=== PATIENT | female | born 1975 | race Caucasian/White ===

== ENCOUNTER 2023-02-20 19:21 | Emergency (ER) | payer SELFPAY ==
[2023-02-20] VITALS (16 sets, daily range): BP systolic 110–174; BP diastolic 57–108; PULSE 97–114; RESP 22; TEMP 36.6–37.2; O2SAT 95–99; BMI 27.8
[2023-02-20] MEDS: ONDANSETRON 4 MG/2 ML INJ IV (20:06)
[2023-02-20 20:20] LABS: Add Manual Diff / Slide Review NO; Basophils Absolute Auto 100 /uL (0-100); Basophils Percent Auto 0.7 % (0-2); Eosinophils Absolute Auto 200 /uL (0-450); Eosinophils Percent Auto 1.3 % (2-4); Hematocrit 44.7 % (36-46); Hemoglobin 15.1 g/dL (12.0-16.0); Lymphocytes Absolute Auto 2300 /uL (1100-4500); Lymphocytes Percent Auto 17.9 % (25-40); Mean Corpuscular HGB Conc 33.8 % (30-36); Mean Corpuscular Hemoglobin 29.2 PG (26-34); Mean Corpuscular Volume 86.2 fL (80-100); Monocytes Absolute Auto 700 /uL (0-900); Monocytes Percent Auto 5.2 % (3-14); Neutrophils Absolute Auto 9500 /uL (1500-7000); Neutrophils Percent Auto 74.9 % (50-75); Platelet Count 404 X10^3/uL (150-400); Red Blood Cell Count 5.19 X10^6/uL (4.0-5.2); White Blood Cell Count 12.7 X10^3/uL (4.5-11.0)
[2023-02-20 20:24] LABS: Bacteria Urine Few (2-10); RBC Urine 0-1/HPF (0-5/HPF); Squamous Epithelial Cell Urine 1-5 /HPF (0-5/HPF); WBC Urine 1-5/HPF (0-5/HPF)
[2023-02-20 20:25] LABS: Amorphous Sediment Urine 4+; Culture Indicated Urine Specimen Cultured
[2023-02-20 20:28] LABS: Alanine Aminotransferase 29 IU/L (<35); Albumin 4.9 g/dL (3.5-5.0); Albumin Globulin Ratio 1.3 (1.0-2.8); Alkaline Phosphatase 143 U/L (38-126); Aspartate Aminotransferase 27 IU/L (14-36); BUN Creatinine Ratio 22.6 (6-22); Bilirubin Total 0.6 mg/dL (0.2-1.3); Blood Urea Nitrogen 19 mg/dL (7-17); Calcium 10.1 mg/dL (8.4-10.2); Carbon Dioxide 23 mmol/L (22-32); Chloride 103 mmol/L (98-107); Estimated Glomerular Filt Rate > 60 mL/min (>60); Globulin 3.7 g/dL (1.7-4.1); Glucose 110 mg/dL (70-100); HEMOLYSIS < 15 (0-50); Lipase 64 U/L (23-300); Potassium 3.9 mmol/L (3.4-5.1); Sodium 139 mmol/L (137-145); Total Protein 8.6 g/dL (6.3-8.2)
[2023-02-20] MEDS: SODIUM CHLORIDE 0.9% 1,000 ML 1000 ML IV ×2 (20:53→23:27)
--- NOTE | 2023-02-20 22:11 | ED.ABDPAIN ---
HPI - Abdominal Pain General Chief Complaint: Abdominal Pain Stated Complaint: NVD, ABD pain Time Seen by Provider: 02/20/23 21:06 Source: patient Mode of arrival: Wheelchair Limitations: no limitations History of Present Illness HPI narrative: 47-year-old female with no reported medical issues. Patient states she was doing fine until a couple hours ago started having abdominal pain particularly in the right lower quadrant and then had nausea and vomiting. States the pain has pretty much resolved but has been intermittently nauseated and continued vomiting. No fevers, denies sweats. Denies chest pain or shortness of breath. She states most of her discomfort is more epigastric currently. No back or flank pain. She states she did not have any flank pain with the pain initially started. She states she normally has bowel movements almost every time she goes to urinate and she has not had a bowel movement today. She is not sure if she is passing any gas but states she would a bowel movement yesterday. She denies dysuria urgency or frequency, urine maybe been a little bit darker. No vaginal bleeding or discharge. She states she is not had similar issues in the past. She states her family has been well, she did not have much to eat she had a peanut butter and jelly sandwich but states her family also had this no one got ill. She is had cholecystectomy and total hysterectomy. She does still have her appendix. She is never had kidney stones. States allergic to sulfa. Denies tobacco, alcohol or illicit. Related Data Previous Rx's Medication Instructions Recorded cephalexin 500 mg capsule 500 mg PO BID 7 days #14 caps 02/21/23 Allergies Allergy/AdvReac Type Severity Reaction Status Date / Time sulfasalazine AdvReac Abdominal Verified 02/20/23 20:05 Pain Review of Systems Review of Systems ROS Unobtainable: All systems reviewed & are unremarkable except as noted in HPI and below Patient History Social History Smoking Status: Never smoker Smoking Status: Never smoker Substance Use Type: does not use Exam Narrative Exam Narrative: GENERAL: Alert and oriented x three, obese female in mild distress. HEENT: Head normocephalic, atraumatic, EOMI, pupils reactive, face symmetric, moist mucous membranes NECK: Supple, full range of motion CARDIOVASCULAR: Regular rate and rhythm without murmurs, rubs or gallops. RESPIRATORY: Breath sounds equal bilaterally, no wheezes rales or rhonchi. ABDOMEN: Soft, nontender. Nondistended. Normoactive bowel sounds all 4 quadrants. No guarding or rebound, rigidity, no mass. After palpation patient's abdomen she started having emesis, was watery with slight yellowish tint. No blood, no bile. Fecal material. : No CVA tenderness bilaterally. EXTREMITIES: Normal range of motion, no clubbing or edema. Neurovascularly intact NEUROLOGICAL: Cranial nerves II through XII grossly intact. Moving all extremities SKIN: Warm, dry, no petechiae, no rashes or lesions. Initial Vital Signs Initial Vital Signs: Vital Signs Temperature 98 F 02/20/23 19:30 Pulse Rate 106 H 02/20/23 19:30 Respiratory Rate 22 02/20/23 19:30 Blood Pressure 174/108 H 02/20/23 19:30 Pulse Oximetry 96 02/20/23 19:30 Oxygen Delivery Method Room Air 02/20/23 19:30 Course Orders Ordered: ED Orders 02/20/23 20:01 Urine Culture Stat Urine Microscopic Stat 02/20/23 20:08 Complete Blood Count AUTO DIFF Stat Comprehensive Metabolic Panel Stat Lactate (Lactic Acid) Stat Lipase Stat Procalcitonin Stat 02/20/23 23:05 CT abdomen pelvis w con Stat 02/20/23 23:34 Blood Culture Stat 02/20/23 23:42 Covid-19 + FLU A/B + RSV - PCR Stat Discontinued Medications Sodium Chloride (Normal Saline 0.9%) 1,000 mls @ 1,000 mls/hr IV BOLUS ONE Stop: 02/20/23 21:45 Last Infusion: 02/20/23 22:11 Dose: Infused Documented By: Admin: 02/20/23 20:53 Dose: 1,000 mls/hr Documented By: RANDY Sodium Chloride (Normal Saline 0.9%) 1,000 mls @ 1,000 mls/hr IV BOLUS ONE Stop: 02/21/23 00:04 Last Infusion: 02/21/23 00:23 Dose: Infused Documented By: Admin: 02/20/23 23:27 Dose: 1,000 mls/hr Documented By: RANDY Ceftriaxone Sodium 2,000 mg/ (Sodium Chloride) 100 mls @ 200 mls/hr IV NOW ONE Stop: 02/20/23 23:46 Last Infusion: 02/21/23 00:58 Dose: Infused Documented By: Admin: 02/21/23 00:19 Dose: 200 mls/hr Documented By: AMANDA Metoclopramide HCl (Metoclopramide 10 Mg/2 Ml Inj) 10 mg IV NOW ONE Stop: 02/20/23 23:05 Last Admin: 02/20/23 23:27 Dose: 10 mg Documented By: RANDY Ondansetron HCl (Ondansetron 4 Mg Odt) 4 mg PO NOW PRN PRN Reason: Nausea And Vomiting Ondansetron HCl (Ondansetron 4 Mg/2 Ml Inj) 4 mg IV NOW PRN PRN Reason: Nausea And Vomiting Last Admin: 02/20/23 20:06 Dose: 4 mg Documented By: RANDY Vital Signs Vital signs: Vital Signs - 8 hr 02/20/23 20:08 02/20/23 20:08 02/20/23 20:30 Temperature Pulse Rate 100 H 97 H Blood Pressure 125/80 Pulse Oximetry 98 97 Oxygen Delivery Method Room Air 02/20/23 20:31 02/20/23 20:31 02/20/23 20:54 Temperature 99.0 F Pulse Rate 98 H Blood Pressure 120/63 Pulse Oximetry 96 Oxygen Delivery Method Room Air 02/20/23 21:00 02/20/23 21:01 02/20/23 21:01 Temperature Pulse Rate 102 H 99 H Blood Pressure 132/68 Pulse Oximetry 98 98 Oxygen Delivery Method Room Air 02/20/23 21:30 02/20/23 21:31 02/20/23 21:31 Temperature Pulse Rate 103 H 102 H Blood Pressure 125/59 L Pulse Oximetry 98 98 Oxygen Delivery Method Room Air 02/20/23 22:00 02/20/23 22:01 02/20/23 22:01 Temperature Pulse Rate 100 H 104 H Blood Pressure 132/62 Pulse Oximetry 96 99 Oxygen Delivery Method 02/20/23 22:30 02/20/23 22:31 02/20/23 22:31 Temperature Pulse Rate 105 H 106 H Blood Pressure 113/57 L Pulse Oximetry 96 95 Oxygen Delivery Method 02/20/23 22:43 02/20/23 22:43 02/20/23 23:00 Temperature Pulse Rate 107 H 114 H Blood Pressure 110/63 Pulse Oximetry 96 95 Oxygen Delivery Method Room Air Room Air 02/20/23 23:00 02/20/23 23:37 02/20/23 23:37 Temperature Pulse Rate 101 H Blood Pressure 121/72 113/77 Pulse Oximetry 99 Oxygen Delivery Method 02/21/23 00:00 02/21/23 00:00 02/21/23 00:30 Temperature Pulse Rate 106 H 105 H Blood Pressure 106/57 L Pulse Oximetry 96 95 Oxygen Delivery Method Room Air Room Air 02/21/23 00:57 02/21/23 00:57 Temperature Pulse Rate 100 H Blood Pressure 109/62 Pulse Oximetry 97 Oxygen Delivery Method Room Air MDM - Abdominal Pain Lab Data 02/20/23 20:08 02/20/23 20:08 Labs: Lab Results 02/20/23 02/20/23 02/20/23 Range/Units 20:01 20:08 23:42 WBC 12.7 H (4.5-11.0) X10^3/uL RBC 5.19 (4.0-5.2) X10^6/uL Hgb 15.1 (12.0-16.0) g/dL Hct 44.7 (36-46) % MCV 86.2 (80-100) fL MCH 29.2 (26-34) PG MCHC 33.8 (30-36) % RDW 14.0 (11.6-14.8) % Plt Count 404 H (150-400) X10^3/uL Neut % (Auto) 74.9 (50-75) % Lymph % (Auto) 17.9 L (25-40) % [place] % (Auto) 5.2 (3-14) % Eos % (Auto) 1.3 L (2-4) % Baso % (Auto) 0.7 (0-2) % Neut # (Auto) 9500 H (2295-6356) /uL Lymph # (Auto) 2300 (4061-7247) /uL [place] # (Auto) 700 (0-900) /uL Eos # (Auto) 200 (0-450) /uL Baso # (Auto) 100 (0-100) /uL Sodium 139 (137-145) mmol/L Potassium 3.9 (3.4-5.1) mmol/L Chloride 103 (98-107) mmol/L Carbon Dioxide 23 (22-32) mmol/L BUN 19 H (7-17) mg/dL Creatinine 0.84 (0.52-1.04) mg/dL Estimated GFR > 60 (>60) mL/min BUN/Creatinine Ratio 22.6 H (6-22) Glucose 110 H (70-100) mg/dL Lactate 1.3 (0.7-2.1) mmol/L Calcium 10.1 (8.4-10.2) mg/dL Total Bilirubin 0.6 (0.2-1.3) mg/dL AST 27 (14-36) IU/L ALT 29 (<35) IU/L Alkaline Phosphatase 143 H (38-126) U/L Total Protein 8.6 H (6.3-8.2) g/dL Albumin 4.9 (3.5-5.0) g/dL Globulin 3.7 (1.7-4.1) g/dL Albumin/Globulin Ratio 1.3 (1.0-2.8) Lipase 64 (23-300) U/L Procalcitonin 0.07 (<0.5) ng/mL Urine RBC 0-1/hpf (0-5/HPF) Urine WBC 1-5/hpf (0-5/HPF) Ur Squamous Epith Cells 1-5 /hpf (0-5/HPF) Amorphous Sediment 4+ Urine Bacteria Few (2-10) H (None) Ur Culture Indicated? Specimen cultured SARS-CoV-2 (PCR) Negative (Negative) Influenza A (RT-PCR) Flu a negative (NEGATIVE) Influenza B (RT-PCR) Flu b negative (NEGATIVE) RSV (PCR) Negative (Negative) Point of care testing: Point of Care Testing Test Results Negative Urine Dip Bedside Urine Glucose Negative Bedside Urine Bilirubin + 1 Bedside Urine Ketone - Negative Urine Specific [place] 1.030 Bedside Urine Occult Blood - Negative Bedside Urine pH 6.0 Bedside Urine Protein + 30 Bedside Urine Urobilinogen - Negative Bedside Urine Nitrite - Negative Bedside Urine Leukocytes +/- [address] scan - abdomen/pelvis: Radiologist's Impression: Close Abdomen/Pelvis CT (Signed) Matheus Cordon - 02/20/23 Launch?[address] [address] [address] Scan Report Signed Patient: Pam Montoya MR#: [id number] : 1975 Acct:[id number] Age/Sex: 47 / F Date of Service: 02/20/23 Loc: ED Accession Number: [id number] Procedure: CT abdomen pelvis w con Ordering Provider: Ami Simons D.O. PROCEDURE: CT ABDOMEN PELVIS W CON INDICATIONS: vomiting, RLQ pain sudden onset today. TECHNIQUE: After the administration of intravenous contrast, axial sections acquired from the lung bases to the pubic symphysis. Coronal and sagittal reformats were performed. For radiation dose reduction, the following was used: automated exposure control, adjustment of mA and/or kV according to patient size. COMPARISON: None. FINDINGS: Image quality: Excellent. Lung bases: Unremarkable. Heart: No significant findings. ABDOMEN: Liver: Liver is normal in size. Mild hepatic steatosis is seen. No discrete hepatic lesion.. Gallbladder: Gallbladder is surgically absent. Biliary ducts: Unremarkable. Pancreas: Unremarkable. Spleen: Unremarkable. Adrenal Glands: Unremarkable. Kidneys and Ureters: Unremarkable. Stomach and Bowel: There is no bowel obstruction. No gastric or small bowel wall thickening. Appendix is visualized in right lower quadrant and is normal in size and appearance. [id number] sigmoid diverticulosis is seen without sigmoid colon wall thickening or mesenteric fat stranding. No abscess collection. Peritoneum: No abnormal intraperitoneal fluid. No free air. Ventral Wall: No hernias. Abdominal Nodes: No retroperitoneal or mesenteric adenopathy by size criteria. Vessels: Aorta and inferior vena cava are normal in size. PELVIS: Pelvic Organs: Unremarkable. Bladder: Unremarkable. Pelvic Nodes: No enlarged lymph nodes. Miscellaneous: Small bilateral inguinal hernia are seen containing fat only. Bones: No suspicious bony lesions. No acute vertebral body compression fracture. IMPRESSION: 1. Normal appendix. No bowel obstruction or abnormal bowel wall thickening. Sigmoid diverticulosis without CT evidence of acute diverticulitis. No abscess collection. No free fluid or free air. 2. Hepatic steatosis, no discrete hepatic lesion. Prior cholecystectomy. No biliary ductal dilatation. 3. No renal stones or hydronephrosis. Dictated by: Matheus Cordon M.D. on 02/20/2023 at 23:38 Approved by: Matheus Cordon M.D. on 02/20/2023 at 23:41 MDM Narrative Medical decision making narrative: 39-year-old female with abdominal pain more in the right lower quadrant nausea and vomiting fairly sudden onset. Patient's labs show white count of 12.7 platelets of 404, normal hemoglobin, BUN 19 normal renal function electrolytes glucose of 110 alk-phos 143 but normal bilirubin, AST ALT and lipase. Lactate procalcitonin were both negative blood cultures are pending these were obtained as patient was little bit tachycardic. Urine does show bacteria, leukocyte esterase, negative . Patient did not have any flank pain, some generalized abdominal pain but little bit more localized to the right lower quadrant. CT abdomen pelvis was obtained shows normal appendix no bowel obstruction or wall thickening, diverticulosis without diverticulitis no abscess hepatic steatosis prior cholecystectomy no biliary ductal dilation no renal stones or hydro. Discussed with patient could have UTI causing vomiting versus other causes. Patient has not had urinary symptoms but would cover. She felt much improved after some additional medication and fluids. She feels comfortable returning home she notes she has a bottle of Zofran at home available to her and will give prescription for oral antibiotic with return precautions. Discharge Plan Departure Patient Disposition: Home Clinical Impression: UTI (urinary tract infection), Vomiting Instructions: DI for Vomiting -- Adult Activity Restrictions/Additional Instructions: Your workup today showed possible urine infection, this could be the source of your vomiting. Please take antibiotics until completely gone. Prescription sent to [facility] in [place]. You may take your home ondansetron 1 tablet every 6 hours as needed for nausea or vomiting. Can take Tylenol up to a 1000 mg every 6 hours needed for pain and/or ibuprofen up to 600 mg every 6 hours. Please return for fevers, new or worsening abdominal back or flank pain, persistent vomiting, black or bloody stools, lightheadedness or passing out or other new or concerning changes. Prescriptions: New cephalexin 500 mg capsule 500 mg PO BID 7 Days Qty: 14 0RF Stand Alone Forms: Patient Portal/API
--- NOTE | 2023-02-20 23:05 | DI.CT.S_ITS ---
PROCEDURE: CT ABDOMEN PELVIS W CON INDICATIONS: vomiting, RLQ pain sudden onset today. TECHNIQUE: After the administration of intravenous contrast, axial sections acquired from the lung bases to the pubic symphysis. Coronal and sagittal reformats were performed. For radiation dose reduction, the following was used: automated exposure control, adjustment of mA and/or kV according to patient size. COMPARISON: None. FINDINGS: Image quality: Excellent. Lung bases: Unremarkable. Heart: No significant findings. ABDOMEN: Liver: Liver is normal in size. Mild hepatic steatosis is seen. No discrete hepatic lesion.. Gallbladder: Gallbladder is surgically absent. Biliary ducts: Unremarkable. Pancreas: Unremarkable. Spleen: Unremarkable. Adrenal Glands: Unremarkable. Kidneys and Ureters: Unremarkable. Stomach and Bowel: There is no bowel obstruction. No gastric or small bowel wall thickening. Appendix is visualized in right lower quadrant and is normal in size and appearance. [id number] sigmoid diverticulosis is seen without sigmoid colon wall thickening or mesenteric fat stranding. No abscess collection. Peritoneum: No abnormal intraperitoneal fluid. No free air. Ventral Wall: No hernias. Abdominal Nodes: No retroperitoneal or mesenteric adenopathy by size criteria. Vessels: Aorta and inferior vena cava are normal in size. PELVIS: Pelvic Organs: Unremarkable. Bladder: Unremarkable. Pelvic Nodes: No enlarged lymph nodes. Miscellaneous: Small bilateral inguinal hernia are seen containing fat only. Bones: No suspicious bony lesions. No acute vertebral body compression fracture. IMPRESSION: 1. Normal appendix. No bowel obstruction or abnormal bowel wall thickening. Sigmoid diverticulosis without CT evidence of acute diverticulitis. No abscess collection. No free fluid or free air. 2. Hepatic steatosis, no discrete hepatic lesion. Prior cholecystectomy. No biliary ductal dilatation. 3. No renal stones or hydronephrosis. Dictated by: Matheus Cordon M.D. on 02/20/2023 at 23:38 Approved by: Matheus Cordon M.D. on 02/20/2023 at 23:41
[2023-02-20 23:27] LABS: Lactate (Lactic Acid) 1.3 mmol/L (0.7-2.1)
[2023-02-20] MEDS: METOCLOPRAMIDE 10 MG/2 ML INJ IV (23:27)
[2023-02-20 23:46] LABS: Procalcitonin 0.07 ng/mL (<0.5)
[2023-02-21] VITALS: BP 106/57; PULSE 106; O2SAT 96
[2023-02-21] MEDS: cefTRIAXone 2,000 MG in SODIUM CHLORIDE 0.9% 100 ML 200 MG IV (00:19)
[2023-02-21 00:30] VITALS: PULSE 105; O2SAT 95
[2023-02-21 00:32] LABS: Influenza A - CEPHEID Flu A NEGATIVE (NEGATIVE); Influenza B - CEPHEID Flu B NEGATIVE (NEGATIVE); Respiratory Syncytial Virus Negative (Negative)
[2023-02-21 00:35] LABS: COVID-19 CEPHEID 4-PLEX PCR Negative (Negative)
[2023-02-21 00:57] VITALS: BP 109/62; PULSE 100; O2SAT 97
== END 2023-02-21 01:11 | disposition home or self-care (01) ==
PROVIDERS: Emergency Provider Emergency Medicine
DX: N39.0 Urinary tract infection, site not specified (principal); R11.10 Vomiting, unspecified; Z20.822 Contact with and (suspected) exposure to COVID-19
CPT/HCPCS: 0241U; 36415; 74177; 80053; 81003; 81015; 81025; 83605; 83690; 84145; 85025; 87040; 87086; 96361; 96365; 96375; 99284; J0696; J2405; J2765; Q9967